=== PATIENT | male | born 1980 | race Caucasian/White ===

== ENCOUNTER 2019-01-01 10:46 | Inpatient (IN) | payer SELFPAY ==
[2019-01-01 11:52] LABS: APPEARANCE,URINE SLIGHTLY-CLOUDY; BILIRUBIN,URINE NEGATIVE (NEGATIVE); GLUCOSE, URINE NEGATIVE (NEGATIVE); KETONES,URINE TRACE mg/dL (NEGATIVE); LEUKOCYTE ESTERASE,URINE NEGATIVE (NEGATIVE); NITRITE,URINE NEGATIVE (NEGATIVE); PROTEIN,URINE 30 mg/dL (NEGATIVE); URINE SPECIFIC GRAVITY 1.026
[2019-01-01 11:54] LABS: COLOR,URINE DARK YELLOW
[2019-01-01 12:05] LABS: URINE AMPHETAMINES SCREEN NEGATIVE; URINE BARBITURATES SCREEN UNCONFIRMED POSITIVE; URINE BENZODIAZEPINES SCREEN NEGATIVE; URINE COCAINE SCREEN NEGATIVE; URINE MARIJUANA (THC) SCREEN UNCONFIRMED POSITIVE; URINE METHADONE SCREEN NEGATIVE; URINE PHENCYCLIDINE SCREEN NEGATIVE
--- NOTE | 2019-01-01 12:05 | ER Document Report ---
ED Medical Screen (RME) - General Chief Complaint: Suicidal Ideation Stated Complaint: SUICIDAL IDEATION Time Seen by Provider: 01/01/19 11:02 Mode of Arrival: Ambulatory Information source: Patient Notes: 38-year-old male who ED for suicidal ideations. He states that he last drank alcohol Saturday night/Saturday morning. He states he drinks a half a gallon of vodka a day he had about a pint late at night. He states the last time he tried to quit drinking he had seizures. He said he was thinking of suicide because he just cannot stand keep in on drinking. He states he is living with a friend who has multiple guns in the house he also has considered jumping off of a bridge or coronary walking in front of traffic. He states he just cannot stand life he is living. I have greeted and performed a rapid initial assessment of this patient. A comprehensive ED assessment and evaluation of the patient, analysis of test results and completion of medical decision making process will be conducted by an additional ED providers. Dictation of this chart was performed using voice recognition software; therefore, there may be some unintended grammatical errors. TRAVEL OUTSIDE OF THE [place] IN LAST 30 DAYS: No - Related Data Allergies/Adverse Reactions: No Known Allergies Allergy (Verified 01/01/19 10:48) Past Medical History - Social History Chew tobacco use (# tins/day): No Frequency of alcohol use: Heavy Drug Abuse: None Renal/ Medical History: Denies: Hx Peritoneal Dialysis Psychiatric Medical History: Reports: Hx Depression Physical Exam - Vital signs Vitals: Temp Pulse Resp BP Pulse Ox 98.4 F 119 H 20 156/102 H 97 01/01/19 10:55 01/01/19 10:55 01/01/19 10:55 01/01/19 10:55 01/01/19 10:55 Course - Vital Signs Vital signs: Temp Pulse Resp BP Pulse Ox 98.4 F 119 H 20 156/102 H 97 01/01/19 10:55 01/01/19 10:55 01/01/19 10:55 01/01/19 10:55 01/01/19 10:55 - Laboratory Laboratory results interpreted by me: 01/01/19 11:28 Urine Protein 30 H Urine Ketones TRACE H Urine Urobilinogen 2.0 H Urine Ascorbic Acid 20 H
[2019-01-01] MEDS ORDERED: NORMAL SALINE 1000 ML 1,000 ML IV PRN ×2 (12:46→14:01)
[2019-01-01] MEDS ORDERED: LORAZEPAM INJ 2 MG/1 ML VIAL IV ONE ×2 (12:47→13:45)
[2019-01-01 12:48] LABS: ABSOLUTE LYMPHOCYTES (AUTO) 1.4 10^3/uL (0.5-4.7); ABSOLUTE MONOCYTES (AUTO) 0.5 10^3/uL (0.1-1.4); ABSOLUTE NEUT (AUTO) 6.1 10^3/uL (1.7-8.2); BASOPHILS % (AUTO) 0.5 % (0-2); EOSINOPHILS % (AUTO) 0.5 % (0-6); HEMATOCRIT 42.1 % (37.9-51.0); HEMOGLOBIN 14.2 g/dL (13.5-17.0); LYMPHOCYTES % (AUTO) 17.5 % (13-45); MEAN CORPUSCULAR HGB CONC 33.8 g/dL (32.0-36.0); MEAN CORPUSCULAR VOLUME 86 fl (80-97); PLATELET COUNT 235 10^3/uL (150-450); RED CELL DISTRIBUTION WIDTH 15.2 % (11.5-14.0); SEGMENTED NEUTROPHILS % (AUTO) 75.5 % (42-78); TOTAL CELLS COUNTED % (AUTO) 100 %
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
[2019-01-01 13:07] LABS: ALANINE AMINOTRANSFERASE 38 U/L (21-72); ALBUMIN 4.8 g/dL (3.5-5.0); ALKALINE PHOSPHATASE 95 U/L (38-126); ANION GAP 9 (5-19); ASPARTATE AMINO TRANSFERASE 44 U/L (17-59); BILIRUBIN,DIRECT 0.4 mg/dL (0.0-0.4); BILIRUBIN,TOTAL 0.6 mg/dL (0.2-1.3); BLOOD UREA NITROGEN 9 mg/dL (7-20); CALCIUM 9.8 mg/dL (8.4-10.2); CARBON DIOXIDE 26 mmol/L (22-30); CHLORIDE 106 mmol/L (98-107); GLUCOSE 92 mg/dL (75-110); POTASSIUM 4.3 mmol/L (3.6-5.0); SODIUM 141.2 mmol/L (137-145); TOTAL PROTEIN 8.1 g/dL (6.3-8.2)
[2019-01-01 13:13] LABS: ACETAMINOPHEN < 10 ug/mL (10-30); ALCOHOL < 10 mg/dL (NONE DETECTED); SALICYLATE < 1.0 mg/dL (2.0-20.0)
[2019-01-01] MEDS ORDERED: OXYCODONE-ACETAMINOPHEN 5-325 MG TABLET PO PRN (14:01)
[2019-01-01] MEDS ORDERED: IPRATROPIUM/ALBUTEROL 0.5-2.5 MG/3 ML AMPUL NEB PRN (14:01)
[2019-01-01] MEDS ORDERED: ONDANSETRON HCL INJ/PF 4 MG/2 ML SDV IV PRN (14:01)
[2019-01-01] MEDS ORDERED: PROMETHAZINE HCL INJ 25 MG/1 ML VIAL IV PRN (14:01)
--- NOTE | 2019-01-01 14:03 | PSYCHOLOGICAL NOTE ---
Psych Note - Psych Note Date seen by psych provider: 01/01/19 Time seen by psych provider: 13:00 Psych Note: Reason For Consult: Suicidal ideation with withdrawal from alcohol 38-year-old male who ED for suicidal ideations. He states that he last drank alcohol Saturday night/Saturday morning. He states he drinks a half a gallon of vodka a day he had about a pint at night. Patient's last drink was approximately 48 hours ago. Patient is alert and orientated to person, place, time and circumstance. Mood is dysphoric with tearful affect. Patient endorses suicidal ideation denies homicidal ideation. Clinician notes patient did not demonstrate any behaviors of responding to internal stimuli during evaluation however approximately 15 minutes after evaluation started to demonstrate behavior of responding to internal stimuli. Patient's face became very flushed and increase of possible seizure was noted by attending nurse. During evaluation patient demonstrates fair to poor attention and concentration. Insight, judgment, impulse control is currently fair as patient indicates coming in for help and wanting to go to [facility] or any other rehab after detox. Alcohol withdrawal with Use Disorder; severe SI Impression/Plan: Patient is recommended for [facility] petition for overnight mental health observation. Patient discloses suicidal ideation in direct correlation to his substance abuse. Patient reports frustration of not being able to maintain sobriety and is scared of going through withdrawal again. Patient reports being admitted to ICU in [place] from withdrawal seizures and hallucinations in September or October timeframe. He reports he was very scared and is angry at himself for drinking again. Patient has been drinking approximately 1 month and is currently on day 2 since his last drink. Patient has been admitted medically. Patient will be reevaluated. Dr. Cobian was consulted to care management of this patient; attending physicians in agreement with recommendations and disposition.
[2019-01-01] MEDS ORDERED: LORAZEPAM INJ 2 MG/1 ML VIAL IV PRN ×2 (14:05)
--- NOTE | 2019-01-01 14:43 | PDOC H&P ---
History of Present Illness Admission Date/PCP: 01/01/19 13:58 History of Present Illness: BRIONNA GALLARDO JR is a 38 year old male past medical history of EtOH and tobacco abuse, DT, seizures secondary to EtOH withdrawal, presenting to ED for suicidal ideation and alcohol withdrawal. Chronic heavy drinking about half a gallon of vodka a day, has been sober for a while, but rebounded about month ago, last drink Saturday night. Recently hospitalized in [place] where he ended up in ICU, started on Precedex and IV Ativan, but not intubated. Patient has been having suicidal ideation, expressed to ED physician he was thinking of suicide because he could not keep ongoing drinking. Also stated that living with friend has multiple guns and has also considered jumping off a bridge or walking in front of traffic. On my encounter patient is very restless, anxious with severe tremors, however alert and oriented and cooperative with physical examination, endorses visual hallucinations, anxiety and formication. When asked about suicidal ideation and what he had expressed to ED physician, he confirms that he has having suicidal ideation. Prior to my encounter psychiatry has already examined the patient and patient is IVC. Denies any fever, chest pain, nausea, vomiting, diarrhea, constipation or any urinary symptoms. Past Medical History Neurological Medical History: Reports: Seizures - When he had alcohol withdrawal Psychiatric Medical History: Reports: Depression Social History Smoking Status: Current Every Day Smoker Frequency of Alcohol Use: Heavy Hx Recreational Drug Use: No Hx Prescription Drug Abuse: No - Advance Directive Resuscitation Status: Full Code Family History Family History: Reviewed & Not Pertinent, Malignancy, Other Parental Family History Reviewed: Yes Children Family History Reviewed: Yes Sibling(s) Family History Reviewed.: Yes Medication/Allergy Home Medications: No Home Medications 01/01/19 Allergies/Adverse Reactions: No Known Allergies Allergy (Verified 01/01/19 10:48) Review of Systems Review of Systems: as per hpi Physical Exam Vital Signs: Temp Pulse Resp BP Pulse Ox 97.8 F 119 H 17 148/104 H 100 01/01/19 14:21 01/01/19 10:55 01/01/19 14:21 01/01/19 14:21 01/01/19 14:21 Intake & Output 12/31/18 01/01/19 01/02/19 06:59 06:59 06:59 Weight 99.6 kg General appearance: PRESENT: mild distress, obese, well-developed, well- nourished Head exam: PRESENT: atraumatic, normocephalic Respiratory exam: PRESENT: clear to auscultation rashard. ABSENT: rales, rhonchi, wheezes Cardiovascular exam: PRESENT: RRR. ABSENT: diastolic murmur, rubs, systolic murmur GI/Abdominal exam: PRESENT: normal bowel sounds, soft. ABSENT: distended, guarding, mass, organolmegaly, rebound, tenderness Extremities exam: PRESENT: full ROM. ABSENT: calf tenderness, clubbing, pedal edema Neurological exam: PRESENT: alert, awake, oriented to person, oriented to place, oriented to time, oriented to situation, CN II-XII grossly intact. ABSENT: motor sensory deficit Psychiatric exam: PRESENT: anxious, suicidal ideation Focused psych exam: PRESENT: internal stimuli, restlessness Skin exam: PRESENT: dry, intact, warm. ABSENT: cyanosis, rash Results Laboratory Results: 01/01/19 12:33 01/01/19 12:33 01/01/19 01/01/19 01/01/19 11:28 12:33 12:33 WBC 8.0 RBC 4.90 Hgb 14.2 Hct 42.1 MCV 86 MCH 29.0 MCHC 33.8 RDW 15.2 H Plt Count 235 Seg Neutrophils % 75.5 Lymphocytes % 17.5 Monocytes % 6.0 Eosinophils % 0.5 Basophils % 0.5 Absolute Neutrophils 6.1 Absolute Lymphocytes 1.4 Absolute Monocytes 0.5 Absolute Eosinophils 0.0 Absolute Basophils 0.0 Sodium 141.2 Potassium 4.3 Chloride 106 Carbon Dioxide 26 Anion Gap 9 BUN 9 Creatinine 1.29 H Est GFR ( Amer) > 60 Est GFR (Non-Af Amer) > 60 Glucose 92 Calcium 9.8 Total Bilirubin 0.6 AST 44 ALT 38 Alkaline Phosphatase 95 Total Protein 8.1 Albumin 4.8 Urine Color DARK YELLOW Urine Appearance SLIGHTLY-CLOUDY Urine pH 5.0 Ur Specific [place] 1.026 Urine Protein 30 H Urine Glucose (UA) NEGATIVE Urine Ketones TRACE H Urine Blood NEGATIVE Urine Nitrite NEGATIVE Ur Leukocyte Esterase NEGATIVE Urine WBC (Auto) 2 Urine RBC (Auto) 1 Assessment and Plan - Diagnosis (1) Acute alcohol intoxication Qualifiers: Complication of substance-induced condition: with unspecified complication Qualified Code(s): F10.929 - Alcohol use, unspecified with intoxication, unspecified Is this a current diagnosis for this admission?: Yes Plan: Admit to IMCU, telemetry, IV scheduled benzos, IV PRN benzos, folic acid, thiamine, D5 NS, fall precaution, seizure precautions, aspiration precautions (2) Alcohol withdrawal Qualifiers: Complication of substance-induced condition: with perceptual disturbance Qu alified Code(s): F10.232 - Alcohol dependence with withdrawal with perceptual disturbance Is this a current diagnosis for this admission?: Yes Plan: As per #1. (3) Suicidal ideation Is this a current diagnosis for this admission?: Yes Plan: IVC in place. Suicide precautions. Psychiatry following. Recommendations will be noted. (4) History of seizure Is this a current diagnosis for this admission?: Yes Plan: Secondary to EtOH withdrawal. Seizure precautions. Benzos as needed.
[2019-01-01] MEDS: MORPHINE SULFATE 10 MG/ML INJ IV PRN ×2 (15:51→20:06)
[2019-01-01] MEDS: LORAZEPAM INJ 2 MG/1 ML VIAL IV PRN ×3 (15:51→20:06)
[2019-01-01] MEDS ORDERED: NORMAL SALINE 1000 ML 1,000 ML with POTASSIUM CHLORIDE 20 MEQ, MAGNESIUM SULFATE 8 MEQ,... IV SCH ×5 (18:00)
[2019-01-01] MEDS ORDERED: DIAZEPAM INJ 10 MG/2 ML DISP.SYRIN IV ONE (18:03)
--- NOTE | 2019-01-01 18:31 | Operative Report ---
Nonrecallable Operative Report DATE OF SURGERY: 01/01/19 PREOPERATIVE DIAGNOSIS: acute alcohol intoxication POSTOPERATIVE DIAGNOSIS: acute alcohol intoxication OPERATION: central venous line placement. SURGEON: HEATHER FLANAGAN ANESTHESIA: Local TISSUE REMOVED OR ALTERED: none COMPLICATIONS: none ESTIMATED BLOOD LOSS: 0 INTRAOPERATIVE FINDINGS: see dictation PROCEDURE: see dictation
--- NOTE | 2019-01-01 18:36 | EKG REPORT ---
SEVERITY:- BORDERLINE ECG - SINUS RHYTHM BORDERLINE INFERIOR Q WAVES : Confirmed by: Elizabeth Rose 01-Jan-2019 18:35:38
--- NOTE | 2019-01-01 18:46 | RADIOLOGY REPORT (SQ) ---
EXAM DESCRIPTION: CHEST SINGLE VIEW COMPLETED DATE/TIME: 01/01/2019 6:38 pm REASON FOR STUDY: central line placement COMPARISON: None. EXAM PARAMETERS: NUMBER OF VIEWS: One view. TECHNIQUE: Single frontal radiographic view of the chest acquired. RADIATION DOSE: NA LIMITATIONS: None. FINDINGS: LUNGS AND PLEURA: No opacities, masses or pneumothorax. No pleural effusion. MEDIASTINUM AND HILAR STRUCTURES: No masses. Contour normal. HEART AND VASCULAR STRUCTURES: Heart normal in size. Normal vasculature. BONES: No acute findings. HARDWARE: Right subclavian central vascular access catheter terminates in the region of the superior vena cava. OTHER: No other significant finding. IMPRESSION: 1. No evidence of acute cardiopulmonary abnormality. 2. Central line terminates in the region of the superior vena cava. TECHNICAL DOCUMENTATION: JOB ID: [id number] [employer]- All Rights Reserved Reading location - IP/workstation name: [email or web address]
--- NOTE | 2019-01-01 19:55 | OPERATIVE REPORT E ---
Operative Report NAME: BRIONNA GALLARDO JR : 1980 AGE: 38Y DATE OF SURGERY: 01/01/2019 ROOM: 330 PREOPERATIVE DIAGNOSES: 1. ACUTE ALCOHOL INTOXICATION. 2. DIFFICULT VENOUS ACCESS. POSTOPERATIVE DIAGNOSES: 1. ACUTE ALCOHOL INTOXICATION. 2. DIFFICULT VENOUS ACCESS. OPERATION: Right subclavian vein central line placement. SURGEON: HEATHER FLANAGAN M.D. PROCEDURE: Patient was placed in a Trendelenburg position. The right neck and chest were prepped and draped in the usual sterile fashion. After appropriate timeout and site verification, using 1% lidocaine plain, I raised a skin wheal underneath the right clavicle. Then using a 16-gauge needle, I cannulated the right subclavian vein. Through the needle, I passed a J-wire into the superior vena cava. The needle was removed. A small skin diane was made with a 15 blade and a dilator was placed over the wire. The dilator was then removed and a triple-lumen 16-gauge central line was then placed over the wire and fixed in place with 2-0 silk suture. A sterile dressing was applied. Chest x-ray revealed good placement. The patient tolerated the procedure well. DICTATING PHYSICIAN: HEATHER FLANAGAN M.D. [id number] Y#: [id number] ID: [id number] JOB#: [id number] ACCT: [id number] cc:HEATHER FLANAGAN M.D. >
[2019-01-01] MEDS ORDERED: DIPHENHYDRAMINE HCL 50 MG/ML VIAL IV ONE (20:31)
[2019-01-01] MEDS: DIAZEPAM INJ 10 MG/2 ML DISP.SYRIN IV SCH (21:10)
[2019-01-01] MEDS: FAMOTIDINE INJ/PF 20 MG/2 ML SDV IV SCH (21:11)
[2019-01-01] MEDS: HEPARIN SOD (PORCINE) 5,000 UNIT/ML 1 ML SYRINGE SUBCUT SCH (21:12)
[2019-01-01] MEDS: HALOPERIDOL LACTATE INJ 5 MG/1 ML VIAL IV ONE ×2 (21:13→21:19)
[2019-01-02] MEDS: OXYCODONE-ACETAMINOPHEN 5-325 MG TABLET PO PRN ×2 (00:25→12:04)
[2019-01-02] MEDS: DEXTROSE 5%-NORMAL SALINE 1,000 ML IV PRN ×2 (00:33→12:44)
[2019-01-02] MEDS: HEPARIN SOD (PORCINE) 5,000 UNIT/ML 1 ML SYRINGE SUBCUT SCH ×3 (06:08→22:22)
[2019-01-02] MEDS: DIAZEPAM INJ 10 MG/2 ML DISP.SYRIN IV SCH ×3 (06:13→22:22)
[2019-01-02 08:10] LABS: ABSOLUTE EOSINOPHILS # (AUTO) 0.1 10^3/uL (0.0-0.6); ABSOLUTE LYMPHOCYTES (AUTO) 1.6 10^3/uL (0.5-4.7); ABSOLUTE MONOCYTES (AUTO) 0.3 10^3/uL (0.1-1.4); ABSOLUTE NEUT (AUTO) 3.2 10^3/uL (1.7-8.2); BASOPHILS % (AUTO) 0.6 % (0-2); EOSINOPHILS % (AUTO) 1.9 % (0-6); HEMATOCRIT 38.5 % (37.9-51.0); LYMPHOCYTES % (AUTO) 30.2 % (13-45); MEAN CORPUSCULAR HEMOGLOBIN 29.3 pg (27.0-33.4); MEAN CORPUSCULAR HGB CONC 33.8 g/dL (32.0-36.0); MEAN CORPUSCULAR VOLUME 87 fl (80-97); MONOCYTES % (AUTO) 5.7 % (3-13); PLATELET COUNT 203 10^3/uL (150-450); RED BLOOD COUNT 4.44 10^6/uL (4.35-5.55); RED CELL DISTRIBUTION WIDTH 15.1 % (11.5-14.0); SEGMENTED NEUTROPHILS % (AUTO) 61.6 % (42-78); TOTAL CELLS COUNTED % (AUTO) 100 %; WHITE BLOOD COUNT 5.2 10^3/uL (4.0-10.5)
[2019-01-02 08:30] LABS: BLOOD UREA NITROGEN 7 mg/dL (7-20); CALCIUM 8.5 mg/dL (8.4-10.2); GLUCOSE 103 mg/dL (75-110); POTASSIUM 4.4 mmol/L (3.6-5.0)
[2019-01-02 08:36] LABS: ANION GAP 5 (5-19); CARBON DIOXIDE 25 mmol/L (22-30); CHLORIDE 110 mmol/L (98-107); SODIUM 139.5 mmol/L (137-145)
[2019-01-02] MEDS: FAMOTIDINE INJ/PF 20 MG/2 ML SDV IV SCH ×2 (09:29→22:21)
[2019-01-02] MEDS: THIAMINE HCL 100 MG TABLET PO SCH (09:29)
[2019-01-02] MEDS ORDERED: THIAMINE HCL 100 MG, FOLIC ACID 1 MG in NORMAL SALINE 250 ML IV SCH (10:00)
[2019-01-02] MEDS ORDERED: LORAZEPAM INJ 2 MG/1 ML VIAL IV PRN (13:21)
[2019-01-02] MEDS ORDERED: HALOPERIDOL LACTATE INJ 5 MG/1 ML VIAL IV PRN (13:22)
[2019-01-02] MEDS: FOLIC ACID/VITAMIN B COMP W-C CAPSULE PO SCH (17:56)
--- NOTE | 2019-01-02 17:56 | PDOC PROGRESS REPORT ---
Subjective Progress Note for:: 01/02/19 Subjective:: Spoke with patient at bedside. Patient states that feeling very anxious and wants something more for his anxiety. States that he wants Ativan. His Ativan was discontinued overnight and Haldol was given for his anxiety. In previous admissions supposedly he was very addicted to Ativan and hence it was discontinued. Told him that I would increase his dose of Valium which may help him with his anxiety. Reason For Visit: ETOH W/L,SI Physical Exam Vital Signs: Temp Pulse Resp BP Pulse Ox 98.0 F 82 15 141/94 H 96 01/02/19 07:32 01/02/19 09:24 01/02/19 09:24 01/02/19 07:32 01/02/19 09:24 Intake & Output 01/01/19 01/02/19 01/03/19 06:59 06:59 06:59 Intake Total 1720 1023 Output Total 400 Balance 1320 1023 Weight 225 lb 1.471 oz General appearance: PRESENT: no acute distress, other - Very anxious appearing Head exam: PRESENT: atraumatic, normocephalic Eye exam: PRESENT: EOMI. ABSENT: scleral icterus Ear exam: PRESENT: normal external ear exam Mouth exam: PRESENT: moist, tongue midline Respiratory exam: PRESENT: clear to auscultation rashard, symmetrical Cardiovascular exam: PRESENT: +S1, +S2 GI/Abdominal exam: PRESENT: normal bowel sounds, soft. ABSENT: tenderness Neurological exam: PRESENT: alert, awake, oriented to person, oriented to place, oriented to time, CN II-XII grossly intact Results Laboratory Results: 01/02/19 07:50 01/02/19 07:50 01/01/19 01/01/19 01/01/19 12:33 12:33 12:33 WBC 8.0 RBC 4.90 Hgb 14.2 Hct 42.1 MCV 86 MCH 29.0 MCHC 33.8 RDW 15.2 H Plt Count 235 Seg Neutrophils % 75.5 Lymphocytes % 17.5 Monocytes % 6.0 Eosinophils % 0.5 Basophils % 0.5 Absolute Neutrophils 6.1 Absolute Lymphocytes 1.4 Absolute Monocytes 0.5 Absolute Eosinophils 0.0 Absolute Basophils 0.0 Sodium 141.2 Potassium 4.3 Chloride 106 Carbon Dioxide 26 Anion Gap 9 BUN 9 Creatinine 1.29 H Est GFR ( Amer) > 60 Est GFR (Non-Af Amer) > 60 Glucose 92 Calcium 9.8 Total Bilirubin 0.6 AST 44 ALT 38 Alkaline Phosphatase 95 Total Protein 8.1 Albumin 4.8 TSH 0.42 L 01/02/19 01/02/19 07:50 07:50 WBC 5.2 RBC 4.44 Hgb 13.0 L Hct 38.5 MCV 87 MCH 29.3 MCHC 33.8 RDW 15.1 H Plt Count 203 Seg Neutrophils % 61.6 Lymphocytes % 30.2 Monocytes % 5.7 Eosinophils % 1.9 Basophils % 0.6 Absolute Neutrophils 3.2 Absolute Lymphocytes 1.6 Absolute Monocytes 0.3 Absolute Eosinophils 0.1 Absolute Basophils 0.0 Sodium 139.5 Potassium 4.4 Chloride 110 H Carbon Dioxide 25 Anion Gap 5 BUN 7 Creatinine 0.84 Est GFR ( Amer) > 60 Est GFR (Non-Af Amer) > 60 Glucose 103 Calcium 8.5 Total Bilirubin AST ALT Alkaline Phosphatase Total Protein Albumin TSH Impressions: Chest X-Ray 01/01/19 00:00 IMPRESSION: 1. No evidence of acute cardiopulmonary abnormality. 2. Central line terminates in the region of the superior vena cava. Assessment and Plan - Diagnosis (1) Alcohol withdrawal Qualifiers: Complication of substance-induced condition: with perceptual disturbance Qualified Code(s): F10.232 - Alcohol dependence with withdrawal with perceptual disturbance Is this a current diagnosis for this admission?: Yes (2) History of seizure Is this a current diagnosis for this admission?: Yes (3) Acute alcohol intoxication Qualifiers: Complication of substance-induced condition: with unspecified complication Qualified Code(s): F10.929 - Alcohol use, unspecified with intoxication, unspecified Is this a current diagnosis for this admission?: Yes (4) Suicidal ideation Is this a current diagnosis for this admission?: Yes - Plan Summary Plan Summary: Alcohol abuse with intoxication and withdrawal-he still feeling very restless and anxious-we will increase his Valium to 10 mg 3 times daily. He was given Haldol last night for anxiety and his Ativan was discontinued due to history of suspected abuse. I may consider to add back Ativan as as needed for anxiety and seizure. Discussed with him about alcohol abuse and cessation. Counseled him on cessation. States he drinks a lot of liquor daily and had dinner prior to admission. States that he has had alcohol-related admission to various hospitals many times. Suicidal ideation- prior to me assuming care he has had suicidal ideations per previous physician and hence he has been IVC'd. He will be going to a psych facility after he is cleared medically.
--- NOTE | 2019-01-02 18:50 | PSYCHOLOGICAL NOTE ---
Psych Note - Psych Note Date seen by psych provider: 01/02/19 Psych Note: Presenting Problem: 24 Hour IVC Petition, Alcohol Withdrawal, Passive SI related to SA. 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 Attending Hospitalist noted patient was shaky and jittery today with no plans for discharge. Today he stated he was doing "alright." He continued to endorse passive SI, general thoughts of not wanting to be here. He denied past SI attempts. He denied previous MH tx. He admitted to detox before and reported the following withdrawal symptoms in the past: shakes, really restless, can't sleep, has had seizures and hallucinations. 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 Diagnosis: Polysubstance Use Alcohol Withdrawal, With Use Disorder, Severe Cannabis Use Disorder Impression/Plan: Patient is cleared from acute psychiatric services. Recommendation to rescind 24 Hour IVC Petition. He denied SI intent and no plans. He denied HI. He did not appear to have any psychosis that interfered with ability to interact , carrying on dialogue conversation, express self/needs/wants. Provided patient with the [facility] outpatient resource sheet which highlighted [facility] and documented they could help with detox and other treatment placement, highlighted the 4 state funded detox facilities [facility] refers to and highlighted [facility]. Consulted with Dr. Cobian regarding the management and care of patient. Attending Hospitalist made aware of recommendations.
[2019-01-03] MEDS: OXYCODONE-ACETAMINOPHEN 5-325 MG TABLET PO PRN ×4 (00:15→22:31)
[2019-01-03] MEDS: DEXTROSE 5%-NORMAL SALINE 1,000 ML IV PRN ×2 (00:15→10:53)
[2019-01-03 04:46] LABS: ABSOLUTE EOSINOPHILS # (AUTO) 0.2 10^3/uL (0.0-0.6); ABSOLUTE LYMPHOCYTES (AUTO) 1.9 10^3/uL (0.5-4.7); ABSOLUTE MONOCYTES (AUTO) 0.4 10^3/uL (0.1-1.4); ABSOLUTE NEUT (AUTO) 3.3 10^3/uL (1.7-8.2); BASOPHILS % (AUTO) 0.4 % (0-2); EOSINOPHILS % (AUTO) 2.7 % (0-6); HEMOGLOBIN 12.7 g/dL (13.5-17.0); LYMPHOCYTES % (AUTO) 32.8 % (13-45); MEAN CORPUSCULAR HEMOGLOBIN 29.4 pg (27.0-33.4); MEAN CORPUSCULAR HGB CONC 34.2 g/dL (32.0-36.0); MEAN CORPUSCULAR VOLUME 86 fl (80-97); MONOCYTES % (AUTO) 6.4 % (3-13); PLATELET COUNT 198 10^3/uL (150-450); RED BLOOD COUNT 4.31 10^6/uL (4.35-5.55); RED CELL DISTRIBUTION WIDTH 15.1 % (11.5-14.0); SEGMENTED NEUTROPHILS % (AUTO) 57.7 % (42-78); TOTAL CELLS COUNTED % (AUTO) 100 %; WHITE BLOOD COUNT 5.8 10^3/uL (4.0-10.5)
[2019-01-03 05:03] LABS: ANION GAP 5 (5-19); BLOOD UREA NITROGEN 6 mg/dL (7-20); CALCIUM 8.6 mg/dL (8.4-10.2); CARBON DIOXIDE 26 mmol/L (22-30); CHLORIDE 108 mmol/L (98-107); GLUCOSE 98 mg/dL (75-110); POTASSIUM 4.2 mmol/L (3.6-5.0); SODIUM 138.9 mmol/L (137-145)
[2019-01-03] MEDS: HEPARIN SOD (PORCINE) 5,000 UNIT/ML 1 ML SYRINGE SUBCUT SCH ×3 (05:17→22:32)
[2019-01-03] MEDS: DIAZEPAM INJ 10 MG/2 ML DISP.SYRIN IV SCH ×3 (05:25→22:31)
[2019-01-03] MEDS: ACETAMINOPHEN 325 MG TABLET PO PRN (09:25)
[2019-01-03] MEDS: FAMOTIDINE INJ/PF 20 MG/2 ML SDV IV SCH ×2 (09:25→22:32)
[2019-01-03] MEDS: THIAMINE HCL 100 MG TABLET PO SCH (09:25)
[2019-01-03] MEDS: LORAZEPAM 1 MG TABLET PO PRN ×3 (10:51→22:32)
--- NOTE | 2019-01-03 13:15 | PDOC PROGRESS REPORT ---
Subjective Progress Note for:: 01/03/19 Subjective:: Spoke with patient at bedside along with his nurse. He states that he still feels anxious, nervous and jittery. He states that this is about a 3-4 now that he is without alcohol and feels worse. He is requesting Ativan again. States that the Valium is not helping. He has no other symptoms of chest pain, shortness breath, abdominal pain, nausea vomiting or dizziness. Reason For Visit: ETOH W/L,SI Physical Exam Vital Signs: Temp Pulse Resp BP Pulse Ox 98.4 F 82 19 138/89 H 100 01/03/19 08:38 01/03/19 09:00 01/03/19 09:00 01/03/19 08:38 01/03/19 09:00 Intake & Output 01/02/19 01/03/19 01/04/19 06:59 06:59 06:59 Intake Total 1720 6999 851 Output Total 400 7075 Balance 1320 -76 851 Weight 225 lb 1.471 oz 225 lb 12.054 oz General appearance: PRESENT: no acute distress Head exam: PRESENT: atraumatic, normocephalic Eye exam: PRESENT: EOMI. ABSENT: scleral icterus Ear exam: PRESENT: normal external ear exam Mouth exam: PRESENT: moist, tongue midline Respiratory exam: PRESENT: clear to auscultation rashard, symmetrical Cardiovascular exam: PRESENT: +S1, +S2 Pulses: PRESENT: +2 pedal pulses bilateral GI/Abdominal exam: PRESENT: normal bowel sounds, soft. ABSENT: tenderness Extremities exam: ABSENT: pedal edema Neurological exam: PRESENT: alert, awake, oriented to person, oriented to place, CN II-XII grossly intact Psychiatric exam: PRESENT: agitated - Somewhat, anxious Skin exam: PRESENT: dry, warm Results Laboratory Results: 01/03/19 04:30 01/03/19 04:30 01/03/19 01/03/19 04:30 04:30 WBC 5.8 RBC 4.31 L Hgb 12.7 L Hct 37.0 L MCV 86 MCH 29.4 MCHC 34.2 RDW 15.1 H Plt Count 198 Seg Neutrophils % 57.7 Lymphocytes % 32.8 Monocytes % 6.4 Eosinophils % 2.7 Basophils % 0.4 Absolute Neutrophils 3.3 Absolute Lymphocytes 1.9 Absolute Monocytes 0.4 Absolute Eosinophils 0.2 Absolute Basophils 0.0 Sodium 138.9 Potassium 4.2 Chloride 108 H Carbon Dioxide 26 Anion Gap 5 BUN 6 L Creatinine 0.73 Est GFR ( Amer) > 60 Est GFR (Non-Af Amer) > 60 Glucose 98 Calcium 8.6 Impressions: Chest X-Ray 01/01/19 00:00 IMPRESSION: 1. No evidence of acute cardiopulmonary abnormality. 2. Central line terminates in the region of the superior vena cava. Assessment and Plan - Diagnosis (1) Alcohol withdrawal Qualifiers: Complication of substance-induced condition: with perceptual disturbance Qualified Code(s): F10.232 - Alcohol dependence with withdrawal with perceptual disturbance Is this a current diagnosis for this admission?: Yes (2) History of seizure Is this a current diagnosis for this admission?: Yes (3) Acute alcohol intoxication Qualifiers: Complication of substance-induced condition: with unspecified complication Qualified Code(s): F10.929 - Alcohol use, unspecified with intoxication, unspecified Is this a current diagnosis for this admission?: Yes (4) Suicidal ideation Is this a current diagnosis for this admission?: Yes - Plan Summary Plan Summary: Alcohol abuse with intoxication and withdrawal-continues to feel anxious and nervous with the increased Valium 10 mg 3 times daily. He is requesting Ativan. I will add Ativan 1 mg p.o. every 6 hours for intermittent anxiety and nerv ousness. He was also seen by psychiatry yesterday and his IVC papers were rescinded as he was much more alert and able to communicate. Today I discussed with him about disposition and he states that he has no vertigo and no place to stay. He states that he would try to go to a jail after discharge until he can move to [place] where his family is. He did not have any other friends or family here. Discussed with him about alcohol abuse and cessation. Counseled him on cessation. States he drinks about half a gallon of liquor daily. States that he has had alcohol-related admission to various hospitals many times. Suicidal ideation-psych evaluated patient yesterday again and at this time IVC has been rescinded per psych. She denies any suicidal or homicidal ideations at this time.
[2019-01-03] MEDS: FOLIC ACID/VITAMIN B COMP W-C CAPSULE PO SCH (15:28)
[2019-01-03] MEDS: HYDRALAZINE HCL INJ/PF 20 MG/1 ML SDV IV PRN ×2 (15:28→23:43)
[2019-01-03] MEDS: KETOROLAC TROMETHAMINE INJ/PF 30 MG/1 ML SDV IV PRN (20:04)
[2019-01-04 03:45] LABS: ABSOLUTE EOSINOPHILS # (AUTO) 0.1 10^3/uL (0.0-0.6); ABSOLUTE LYMPHOCYTES (AUTO) 1.9 10^3/uL (0.5-4.7); ABSOLUTE MONOCYTES (AUTO) 0.4 10^3/uL (0.1-1.4); ABSOLUTE NEUT (AUTO) 3.4 10^3/uL (1.7-8.2); BASOPHILS % (AUTO) 0.7 % (0-2); EOSINOPHILS % (AUTO) 1.7 % (0-6); HEMATOCRIT 40.1 % (37.9-51.0); HEMOGLOBIN 13.7 g/dL (13.5-17.0); LYMPHOCYTES % (AUTO) 32.9 % (13-45); MEAN CORPUSCULAR HEMOGLOBIN 29.3 pg (27.0-33.4); MEAN CORPUSCULAR HGB CONC 34.2 g/dL (32.0-36.0); MEAN CORPUSCULAR VOLUME 86 fl (80-97); MONOCYTES % (AUTO) 6.5 % (3-13); PLATELET COUNT 227 10^3/uL (150-450); RED BLOOD COUNT 4.68 10^6/uL (4.35-5.55); RED CELL DISTRIBUTION WIDTH 15.5 % (11.5-14.0); SEGMENTED NEUTROPHILS % (AUTO) 58.2 % (42-78); TOTAL CELLS COUNTED % (AUTO) 100 %; WHITE BLOOD COUNT 5.8 10^3/uL (4.0-10.5)
[2019-01-04] MEDS: OXYCODONE-ACETAMINOPHEN 5-325 MG TABLET PO PRN ×4 (04:49→20:56)
[2019-01-04] MEDS: LORAZEPAM 1 MG TABLET PO PRN ×4 (04:51→22:59)
[2019-01-04 04:56] LABS: ANION GAP 7 (5-19); BLOOD UREA NITROGEN 5 mg/dL (7-20); CALCIUM 9.2 mg/dL (8.4-10.2); CARBON DIOXIDE 25 mmol/L (22-30); CHLORIDE 108 mmol/L (98-107); GLUCOSE 91 mg/dL (75-110); SODIUM 139.5 mmol/L (137-145)
[2019-01-04] MEDS: HEPARIN SOD (PORCINE) 5,000 UNIT/ML 1 ML SYRINGE SUBCUT SCH ×3 (06:01→21:09)
[2019-01-04] MEDS: DIAZEPAM INJ 10 MG/2 ML DISP.SYRIN IV SCH ×3 (06:01→21:10)
[2019-01-04] MEDS: THIAMINE HCL 100 MG TABLET PO SCH (10:23)
[2019-01-04] MEDS: FAMOTIDINE INJ/PF 20 MG/2 ML SDV IV SCH (10:24)
[2019-01-04] MEDS: AMLODIPINE BESYLATE 5 MG TABLET PO SCH (11:35)
[2019-01-04] MEDS: KETOROLAC TROMETHAMINE INJ/PF 30 MG/1 ML SDV IV PRN (13:55)
--- NOTE | 2019-01-04 15:07 | PDOC PROGRESS REPORT ---
Subjective Reason For Visit: ETOH W/L,SI Physical Exam Vital Signs: Temp Pulse Resp BP Pulse Ox 98.4 F 74 16 137/104 H 99 01/04/19 07:52 01/04/19 14:00 01/04/19 07:52 01/04/19 07:52 01/04/19 07:52 Intake & Output 01/03/19 01/04/19 01/05/19 06:59 06:59 06:59 Intake Total 6943 3248 Output Total 6123 2703 Balance -76 1173 Weight 225 lb 12.054 oz 223 lb 1.725 oz Results Laboratory Results: 01/04/19 03:35 01/04/19 03:35 01/04/19 01/04/19 03:35 03:35 WBC 5.8 RBC 4.68 Hgb 13.7 Hct 40.1 MCV 86 MCH 29.3 MCHC 34.2 RDW 15.5 H Plt Count 227 Seg Neutrophils % 58.2 Lymphocytes % 32.9 Monocytes % 6.5 Eosinophils % 1.7 Basophils % 0.7 Absolute Neutrophils 3.4 Absolute Lymphocytes 1.9 Absolute Monocytes 0.4 Absolute Eosinophils 0.1 Absolute Basophils 0.0 Sodium 139.5 Potassium 4.0 Chloride 108 H Carbon Dioxide 25 Anion Gap 7 BUN 5 L Creatinine 0.73 Est GFR ( Amer) > 60 Est GFR (Non-Af Amer) > 60 Glucose 91 Calcium 9.2 Impressions: Chest X-Ray 01/01/19 00:00 IMPRESSION: 1. No evidence of acute cardiopulmonary abnormality. 2. Central line terminates in the region of the superior vena cava. Assessment and Plan - Diagnosis (1) Alcohol withdrawal Qualifiers: Complication of substance-induced condition: with perceptual disturbance Qualified Code(s): F10.232 - Alcohol dependence with withdrawal with perceptual disturbance Is this a current diagnosis for this admission?: Yes (2) History of seizure Is this a current diagnosis for this admission?: Yes (3) Acute alcohol intoxication Qualifiers: Complication of substance-induced condition: with unspecified complication Qualified Code(s): F10.929 - Alcohol use, unspecified with intoxication, unspe cified Is this a current diagnosis for this admission?: Yes (4) Suicidal ideation Is this a current diagnosis for this admission?: Yes (5) Tooth pain Is this a current diagnosis for this admission?: Yes - Plan Summary Plan Summary: Alcohol abuse with intoxication and withdrawal-he seems to be doing better today compared to yesterday. He still has some anxiety but definitely improved. We will continue with Ativan as needed, Valium and supplement repletion of his vitamins. Initially he was IVC but that has been rescinded. He will need case management/discharge planning help with finding a long-term after discharge. Tooth pain-he does poor dental hygiene and 1 of his tooth seems to be decaying- continue with Percocet, Tylenol and Toradol as needed for pain. He will need follow-up after discharge. Suicidal ideation-psych evaluated patient yesterday again and at this time IVC has been rescinded per psych. She denies any suicidal or homicidal ideations at this time. Disposition-most likely discharge to a long-term as he has no place to go. Most likely we can discharge him on a short course of Valium taper-most likely to a long-term. Case management is aware.
[2019-01-04] MEDS: FOLIC ACID/VITAMIN B COMP W-C CAPSULE PO SCH (16:52)
[2019-01-04] MEDS: HYDRALAZINE HCL INJ/PF 20 MG/1 ML SDV IV PRN (19:24)
[2019-01-04] MEDS: FAMOTIDINE 20 MG TABLET PO SCH (21:09)
[2019-01-05] MEDS: OXYCODONE-ACETAMINOPHEN 5-325 MG TABLET PO PRN ×6 (01:07→22:04)
[2019-01-05] MEDS: HEPARIN SOD (PORCINE) 5,000 UNIT/ML 1 ML SYRINGE SUBCUT SCH ×3 (05:24→21:33)
[2019-01-05] MEDS: DIAZEPAM INJ 10 MG/2 ML DISP.SYRIN IV SCH ×3 (05:24→21:32)
[2019-01-05] MEDS: LORAZEPAM 1 MG TABLET PO PRN ×2 (05:32→17:33)
[2019-01-05] MEDS: THIAMINE HCL 100 MG TABLET PO SCH (09:51)
[2019-01-05] MEDS: FAMOTIDINE 20 MG TABLET PO SCH ×2 (09:51→21:32)
[2019-01-05] MEDS: AMLODIPINE BESYLATE 5 MG TABLET PO SCH (09:51)
--- NOTE | 2019-01-05 12:09 | PDOC PROGRESS REPORT ---
Subjective Progress Note for:: 01/05/19 Subjective:: 38 year old male past medical history of EtOH and tobacco abuse, DT, seizures secondary to EtOH withdrawal, presenting to ED for suicidal ideation and alcohol withdrawal. Chronic heavy drinking about half a gallon of vodka a day, has been sober for a while, but rebounded about month ago, last drink Saturday night. Recently hospitalized in [place] where he ended up in ICU, started on Precedex and IV Ativan, but not intubated. Patient has been having suicidal ideation, expressed to ED physician he was thinking of suicide because he could not keep ongoing drinking. Also stated that living with friend has multiple guns and has also considered jumping off a bridge or walking in front of traffic. On my encounter patient is very restless, anxious with severe tremors, however alert and oriented and cooperative with physical examination, endorses visual hallucinations, anxiety and formication. When asked about suicidal ideation and what he had expressed to ED physician, he confirms that he has having suicidal ideation. Prior to my encounter psychiatry has already examined the patient and patient is IVC. Denies any fever, chest pain, nausea, vomiting, diarrhea, constipation or any urinary symptoms. 01/05/[id number]-hguu-old male admitted with a history of alcohol abuse tobacco abuse and DTs. He had a seizure secondary to EtOH withdrawal. Initially an IVC commitment. IVC is rescinded. Patient is comfortable in the chair communicating well. Is waiting for placement in [facility]. Reason For Visit: ETOH W/L,SI Physical Exam Vital Signs: Temp Pulse Resp BP Pulse Ox 98.2 F 65 18 145/92 H 99 01/05/19 07:39 01/05/19 07:39 01/05/19 07:39 01/05/19 07:39 01/05/19 07:39 Intake & Output 01/04/19 01/05/19 01/06/19 06:59 06:59 06:59 Intake Total 3248 1260 Output Total 2075 Balance 1173 1260 Weight 101.2 kg 99.6 kg General appearance: PRESENT: no acute distress, cooperative Head exam: PRESENT: atraumatic Eye exam: PRESENT: PERRLA Ear exam: PRESENT: normal external ear exam Mouth exam: PRESENT: dry mucosa Teeth exam: PRESENT: poor dentation Neck exam: ABSENT: carotid bruit, JVD, lymphadenopathy, thyromegaly Respiratory exam: PRESENT: decreased breath sounds Cardiovascular exam: PRESENT: RRR. ABSENT: diastolic murmur, rubs, systolic murmur GI/Abdominal exam: PRESENT: normal bowel sounds, soft. ABSENT: distended, guarding, mass, organolmegaly, rebound, tenderness Rectal exam: PRESENT: deferred Extremities exam: PRESENT: full ROM. ABSENT: calf tenderness, clubbing, pedal edema Neurological exam: PRESENT: alert, awake, oriented to person, oriented to place, oriented to time, oriented to situation, CN II-XII grossly intact. ABSENT: motor sensory deficit Psychiatric exam: PRESENT: appropriate affect, normal mood. ABSENT: homicidal ideation, suicidal ideation Results Laboratory Results: 01/04/19 03:35 01/04/19 03:35 Impressions: Chest X-Ray 01/01/19 00:00 IMPRESSION: 1. No evidence of acute cardiopulmonary abnormality. 2. Central line terminates in the region of the superior vena cava. Assessment and Plan - Diagnosis (1) Acute alcohol intoxication Qualifiers: Complication of substance-induced condition: with unspecified complication Qualified Code(s): F10.929 - Alcohol use, unspecified with intoxication, unspecified Is this a current diagnosis for this admission?: Yes Plan: Admit to IMCU, telemetry, IV scheduled benzos, IV PRN benzos, folic acid, thiamine, D5 NS, fall precaution, seizure precautions, aspiration precautions Alcohol abuse with intoxication and withdrawal-he seems to be doing better today compared to yesterday. He still has some anxiety but definitely improved. We will continue with Ativan as needed, Valium and supplement repletion of his vitamins. Initially he was IVC but that has been rescinded. He will need case management/discharge planning help with finding a [facility] after discharge. 01/05/2019-patient is doing well. Initially he was under IVC which was rescinded. Waiting for [facility] placement. Is doing well. (2) Tooth pain Is this a current diagnosis for this admission?: Yes Plan: he does poor dental hygiene and 1 of his tooth seems to be decaying-continue with Percocet, Tylenol and Toradol as needed for pain. He will need follow-up after discharge. 01/05/2019-patient came in with tooth pain. Is receiving Tylenol Percocets and Toradol as needed basis. Patient need to follow-up with a dentist as an outpatient. (3) Suicidal ideation Is this a current diagnosis for this admission?: Yes Plan: IVC in place. Suicide precautions. Psychiatry following. Recommendations will be noted. -psych evaluated patient yesterday again and at this time IVC has been rescinded per psych. She denies any suicidal or homicidal ideations at this time. 7 [id number] was rescinded by the psych P. Denies any suicidal ideation or homicidal ideation at this time. (4) Tobacco abuse Is this a current diagnosis for this admission?: No Plan: 01/05/2019-patient has history of alcohol abuse smoking counseling was provided. pt Was strongly advised to quit smoking. - Time Time Spent with patient: 15-24 minutes Smoking Cessation Education: over 10 minutes Medications reviewed and adjusted accordingly: Yes Anticipated discharge: Other - Longterm
[2019-01-05] MEDS: FOLIC ACID/VITAMIN B COMP W-C CAPSULE PO SCH (17:33)
[2019-01-06] MEDS: HEPARIN SOD (PORCINE) 5,000 UNIT/ML 1 ML SYRINGE SUBCUT SCH ×3 (05:02→21:30)
[2019-01-06] MEDS: DIAZEPAM INJ 10 MG/2 ML DISP.SYRIN IV SCH ×2 (05:02→13:42)
[2019-01-06] MEDS: OXYCODONE-ACETAMINOPHEN 5-325 MG TABLET PO PRN ×4 (05:05→20:41)
[2019-01-06] MEDS: LORAZEPAM 1 MG TABLET PO PRN ×2 (05:09→16:19)
[2019-01-06 05:20] LABS: ABSOLUTE EOSINOPHILS # (AUTO) 0.1 10^3/uL (0.0-0.6); ABSOLUTE LYMPHOCYTES (AUTO) 1.9 10^3/uL (0.5-4.7); ABSOLUTE MONOCYTES (AUTO) 0.4 10^3/uL (0.1-1.4); ABSOLUTE NEUT (AUTO) 2.3 10^3/uL (1.7-8.2); BASOPHILS % (AUTO) 0.6 % (0-2); EOSINOPHILS % (AUTO) 2.7 % (0-6); HEMATOCRIT 41.2 % (37.9-51.0); HEMOGLOBIN 13.9 g/dL (13.5-17.0); LYMPHOCYTES % (AUTO) 39.5 % (13-45); MEAN CORPUSCULAR HEMOGLOBIN 29.1 pg (27.0-33.4); MEAN CORPUSCULAR HGB CONC 33.7 g/dL (32.0-36.0); MEAN CORPUSCULAR VOLUME 86 fl (80-97); MONOCYTES % (AUTO) 8.4 % (3-13); PLATELET COUNT 205 10^3/uL (150-450); RED BLOOD COUNT 4.78 10^6/uL (4.35-5.55); RED CELL DISTRIBUTION WIDTH 15.4 % (11.5-14.0); SEGMENTED NEUTROPHILS % (AUTO) 48.8 % (42-78); TOTAL CELLS COUNTED % (AUTO) 100 %; WHITE BLOOD COUNT 4.7 10^3/uL (4.0-10.5)
[2019-01-06 05:40] LABS: ALANINE AMINOTRANSFERASE 25 U/L (21-72); ALBUMIN 3.8 g/dL (3.5-5.0); ALKALINE PHOSPHATASE 69 U/L (38-126); ANION GAP 6 (5-19); ASPARTATE AMINO TRANSFERASE 17 U/L (17-59); BILIRUBIN,DIRECT 0.2 mg/dL (0.0-0.4); BILIRUBIN,TOTAL 0.4 mg/dL (0.2-1.3); BLOOD UREA NITROGEN 9 mg/dL (7-20); CALCIUM 9.4 mg/dL (8.4-10.2); CARBON DIOXIDE 27 mmol/L (22-30); CHLORIDE 108 mmol/L (98-107); GLUCOSE 88 mg/dL (75-110); POTASSIUM 4.4 mmol/L (3.6-5.0); SODIUM 141.2 mmol/L (137-145); TOTAL PROTEIN 6.4 g/dL (6.3-8.2)
[2019-01-06] MEDS: FAMOTIDINE 20 MG TABLET PO SCH ×2 (10:19→21:30)
[2019-01-06] MEDS: THIAMINE HCL 100 MG TABLET PO SCH (10:19)
[2019-01-06] MEDS: AMLODIPINE BESYLATE 5 MG TABLET PO SCH (10:19)
--- NOTE | 2019-01-06 15:08 | PDOC PROGRESS REPORT ---
Subjective Progress Note for:: 01/06/19 Subjective:: 38-year-old male with a history of EtOH abuse DTs and seizures secondary to withdrawal [facility]. Patient does have a history of chronic drinking about half a gallon of vodka a day apparently has been hospitalized several times but in [facility] and ended up on Precedex and IV Ativan at one time. Patient had been having some suicidal ideation but that is passed at this time. Patient states he is having a severe amount of pain in his left upper incisor which is broke off at the gumline. Patient sitting on side of bed with no acute distress or tremors noted. Reason For Visit: ETOH W/L,SI Physical Exam Vital Signs: Temp Pulse Resp BP Pulse Ox 97.8 F 75 18 120/74 100 01/06/19 11:23 01/06/19 11:23 01/06/19 11:23 01/06/19 11:23 01/06/19 11:23 Intake & Output 01/05/19 01/06/19 01/07/19 06:59 06:59 06:59 Intake Total 1260 2572 222 Balance 1260 2572 222 Weight 99.6 kg 97.2 kg General appearance: PRESENT: no acute distress, well-developed, well-nourished Head exam: PRESENT: atraumatic, normocephalic Eye exam: PRESENT: conjunctiva pink, EOMI, PERRLA. ABSENT: scleral icterus Ear exam: PRESENT: normal external ear exam Mouth exam: PRESENT: moist, tongue midline Teeth exam: PRESENT: poor dentation - Left upper incisor broke off at the gumline. Neck exam: ABSENT: carotid bruit, JVD, lymphadenopathy, thyromegaly Respiratory exam: PRESENT: clear to auscultation rashard. ABSENT: rales, rhonchi, wheezes Cardiovascular exam: PRESENT: RRR. ABSENT: diastolic murmur, rubs, systolic murmur Pulses: PRESENT: normal dorsalis pedis pul Vascular exam: PRESENT: normal capillary refill GI/Abdominal exam: PRESENT: normal bowel sounds, soft. ABSENT: distended, guarding, mass, organolmegaly, rebound, tenderness Rectal exam: PRESENT: deferred Extremities exam: PRESENT: full ROM. ABSENT: calf tenderness, clubbing, pedal edema Neurological exam: PRESENT: alert, awake, oriented to person, oriented to place, oriented to time, oriented to situation, CN II-XII grossly intact. ABSENT: motor sensory deficit Psychiatric exam: PRESENT: appropriate affect, normal mood. ABSENT: homicidal ideation, suicidal ideation Skin exam: PRESENT: dry, intact, warm. ABSENT: cyanosis, rash Results Laboratory Results: 01/06/19 05:05 01/06/19 05:05 01/06/19 01/06/19 05:05 05:05 WBC 4.7 RBC 4.78 Hgb 13.9 Hct 41.2 MCV 86 MCH 29.1 MCHC 33.7 RDW 15.4 H Plt Count 205 Seg Neutrophils % 48.8 Lymphocytes % 39.5 Monocytes % 8.4 Eosinophils % 2.7 Basophils % 0.6 Absolute Neutrophils 2.3 Absolute Lymphocytes 1.9 Absolute Monocytes 0.4 Absolute Eosinophils 0.1 Absolute Basophils 0.0 Sodium 141.2 Potassium 4.4 Chloride 108 H Carbon Dioxide 27 Anion Gap 6 BUN 9 Creatinine 1.00 Est GFR ( Amer) > 60 Est GFR (Non-Af Amer) > 60 Glucose 88 Calcium 9.4 Magnesium 2.2 Total Bilirubin 0.4 AST 17 ALT 25 Alkaline Phosphatase 69 Total Protein 6.4 Albumin 3.8 Impressions: Chest X-Ray 01/01/19 00:00 IMPRESSION: 1. No evidence of acute cardiopulmonary abnormality. 2. Central line terminates in the region of the superior vena cava. Assessment and Plan - Diagnosis (1) Alcohol withdrawal Qualifiers: Complication of substance-induced condition: with perceptual disturbance Qualified Code(s): F10.232 - Alcohol dependence with withdrawal with perceptual disturbance Is this a current diagnosis for this admission?: Yes Plan: Patient past point for needing heavy doses of benzodiazepines. I will DC IV Valium and IV Ativan. Would leave PRN p.o. Ativan in place. (2) Tooth pain Is this a current diagnosis for this admission?: Yes Plan: Patient states severe tooth pain. Patient is getting Percocet 5 one every 4 hours as needed. I will increase this to 2 every 6 hours. For better coverage. (3) Suicidal ideation Is this a current diagnosis for this admission?: Yes Plan: Resolved at this time. We will continue to follow patient and psychiatry recommendations patient to be discharged most likely tomorrow to inpatient bed for rehab. (4) Tobacco abuse Is this a current diagnosis for this admission?: No Plan: Education on smoking cessation given. - Time Time Spent with patient: 15-24 minutes - Inpatient Certification Medical Necessity: Need Close Monitoring Due to Risk of Patient Decompensation
[2019-01-06] MEDS: FOLIC ACID/VITAMIN B COMP W-C CAPSULE PO SCH (16:20)
[2019-01-06] MEDS: ACETAMINOPHEN 325 MG TABLET PO PRN (17:47)
[2019-01-07] MEDS: OXYCODONE-ACETAMINOPHEN 5-325 MG TABLET PO PRN ×2 (03:16→09:50)
[2019-01-07] MEDS: HEPARIN SOD (PORCINE) 5,000 UNIT/ML 1 ML SYRINGE SUBCUT SCH (05:01)
[2019-01-07] MEDS: THIAMINE HCL 100 MG TABLET PO SCH (09:50)
[2019-01-07] MEDS: AMLODIPINE BESYLATE 5 MG TABLET PO SCH (09:50)
[2019-01-07] MEDS: FAMOTIDINE 20 MG TABLET PO SCH (09:50)
--- NOTE | 2019-01-07 12:11 | PDOC DISCHARGE SUMMARY ---
General - Admit/Disc Date/PCP Admission Date/Primary Care Provider: 01/01/19 14:02 Discharge Date: 01/07/19 - Discharge Diagnosis (1) Alcohol withdrawal Is this a current diagnosis for this admission?: Yes (2) Tooth pain Is this a current diagnosis for this admission?: Yes (3) Suicidal ideation Is this a current diagnosis for this admission?: Yes (4) Tobacco abuse Is this a current diagnosis for this admission?: No - Additional Information Resuscitation Status: Full Code Discharge Diet: As Tolerated Discharge Activity: Activity As Tolerated Prescriptions: Amlodipine Besylate [Norvasc 5 mg Tablet] 5 mg PO DAILY #30 tablet Oxycodone HCl/Acetaminophen [Percocet 7.5-325 mg Tablet] 1 - 2 tab PO ASDIR PRN #15 tab PRN Reason: Home Medications: Amlodipine Besylate [Norvasc 5 mg Tablet] 5 mg PO DAILY #30 tablet 01/07/19 Oxycodone HCl/Acetaminophen [Percocet 7.5-325 mg Tablet] 1 - 2 tab PO ASDIR PRN #15 tab 01/07/19 History of Present Illness History of Present Illness: BRIONNA GALLARDO JR is a 38 year old male who presented to the ER with alcohol withdrawal and suicidal ideation. Patient also has a left lateral incisor that is broke off at the gumline which is causing intermittent pain. Patient was treated for alcohol withdrawal with IV Valium and Ativan while given multivitamins thiamine and folic acid. Patient has improved sufficiently to be discharged today. Patient is going [facility] and then hopefully be transferred to [facility] tomorrow for rehab. I will discharge patient with Norvasc for his blood pressure as well as Percocet 5/325 1 p.o. every 4 to 6 hours as needed #15 no refills for this acute toothache until patient be seen by dental. Physical Exam Vital Signs: Temp Pulse Resp BP Pulse Ox 97.9 F 56 L 16 127/80 H 100 01/07/19 03:11 01/07/19 07:00 01/07/19 03:11 01/07/19 03:11 01/07/19 03:11 Intake & Output 01/06/19 01/07/19 01/08/19 06:59 06:59 06:59 Intake Total 2572 2569 Output Total 2 Balance 2572 2567 Weight 97.2 kg 97.9 kg General appearance: PRESENT: no acute distress, well-developed, well-nourished Head exam: PRESENT: atraumatic, normocephalic Eye exam: PRESENT: conjunctiva pink, EOMI, PERRLA. ABSENT: scleral icterus Teeth exam: PRESENT: poor dentation Neck exam: ABSENT: carotid bruit, JVD, lymphadenopathy, thyromegaly Respiratory exam: PRESENT: clear to auscultation rashard. ABSENT: rales, rhonchi, wheezes Cardiovascular exam: PRESENT: RRR. ABSENT: diastolic murmur, rubs, systolic murmur Pulses: PRESENT: normal dorsalis pedis pul Vascular exam: PRESENT: normal capillary refill GI/Abdominal exam: PRESENT: normal bowel sounds, soft. ABSENT: distended, guarding, mass, organolmegaly, rebound, tenderness Extremities exam: PRESENT: full ROM. ABSENT: calf tenderness, clubbing, pedal edema Neurological exam: PRESENT: alert, awake, oriented to person, oriented to place, oriented to time, oriented to situation, CN II-XII grossly intact. ABSENT: motor sensory deficit Psychiatric exam: PRESENT: appropriate affect, normal mood. ABSENT: homicidal ideation, suicidal ideation Skin exam: PRESENT: dry, intact, warm. ABSENT: cyanosis, rash Results Laboratory Results: 01/06/19 05:05 01/06/19 05:05 Impressions: Chest X-Ray 01/01/19 00:00 IMPRESSION: 1. No evidence of acute cardiopulmonary abnormality. 2. Central line terminates in the region of the superior vena cava. Qualifiers - * PATIENT BEING DISCHARGED WITH ANY OF THE FOLLOWING DIAGNOSIS: No Acute Heart Failure - Is this a Heart Failure Patient?: No Plan Time Spent: Greater than 30 Minutes
[2019-01-07 13:12] VITALS: BP 141/77
== END 2019-01-07 13:45 | disposition home or self-care (01) | DRG 897 ==
LOC: ER 10:46 → EH 13:58 → OBSVTOIN 14:02 → 3S 14:58
PROVIDERS: ADMIT Internal Medicine; ATTEND Internal Medicine
PROC: 02HV33Z Insertion of Infusion Device into Superior Vena Cava, Percutaneous Approach (ICD-10-PCS; principal; 2019-01-01)
DX: F10.232 Alcohol dependence with withdrawal with perceptual disturbance (principal); R45.851 Suicidal ideations; F32.9 Major depressive disorder, single episode, unspecified; F17.210 Nicotine dependence, cigarettes, uncomplicated; F10.229 Alcohol dependence with intoxication, unspecified; F12.90 Cannabis use, unspecified, uncomplicated; K08.89 Other specified disorders of teeth and supporting structures; Z59.0 Homelessness
CPT/HCPCS: 36415; 71045; 80048; 80053; 80307; 81001; 82962; 83735; 84443; 85025; 93005; 93010; 96361; 96374; 99291; J0360; J1200; J1630; J1644; J1885; J2060; J2270; J3360; J3411; J3475; J3480; J3490; J7030; J7042; S0028

== ENCOUNTER 2019-11-26 21:34 | Emergency (ER) | payer SELFPAY ==
[2019-11-27] MEDS ORDERED: DIAZEPAM 5 MG TABLET PO ONE (00:01)
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
[2019-11-27 01:36] LABS: APPEARANCE,URINE CLEAR; BILIRUBIN,URINE NEGATIVE (NEGATIVE); COLOR,URINE YELLOW; GLUCOSE, URINE NEGATIVE (NEGATIVE); KETONES,URINE NEGATIVE (NEGATIVE); LEUKOCYTE ESTERASE,URINE NEGATIVE (NEGATIVE); NITRITE,URINE NEGATIVE (NEGATIVE); PROTEIN,URINE NEGATIVE (NEGATIVE); URINE SPECIFIC GRAVITY 1.012; UROBILINOGEN,URINE NEGATIVE mg/dL (<2.0)
[2019-11-27 01:37] LABS: ABSOLUTE EOSINOPHILS # (AUTO) 0.2 10^3/uL (0.0-0.6); ABSOLUTE LYMPHOCYTES (AUTO) 3.6 10^3/uL (0.5-4.7); ABSOLUTE MONOCYTES (AUTO) 0.3 10^3/uL (0.1-1.4); ABSOLUTE NEUT (AUTO) 2.2 10^3/uL (1.7-8.2); BASOPHILS % (AUTO) 0.7 % (0-2); EOSINOPHILS % (AUTO) 3.9 % (0-6); HEMATOCRIT 43.6 % (37.9-51.0); HEMOGLOBIN 15.2 g/dL (13.5-17.0); LYMPHOCYTES % (AUTO) 56.8 % (13-45); MEAN CORPUSCULAR HEMOGLOBIN 29.8 pg (27.0-33.4); MEAN CORPUSCULAR HGB CONC 34.8 g/dL (32.0-36.0); MEAN CORPUSCULAR VOLUME 86 fl (80-97); MONOCYTES % (AUTO) 4.6 % (3-13); PLATELET COUNT 214 10^3/uL (150-450); RED BLOOD COUNT 5.09 10^6/uL (4.35-5.55); RED CELL DISTRIBUTION WIDTH 14.1 % (11.5-14.0); TOTAL CELLS COUNTED % (AUTO) 100 %; WHITE BLOOD COUNT 6.3 10^3/uL (4.0-10.5)
[2019-11-27 01:47] LABS: ALBUMIN 4.8 g/dL (3.5-5.0); ALCOHOL 200 mg/dL (NONE DETECTED); ALKALINE PHOSPHATASE 106 U/L (38-126); ANION GAP 12 (5-19); ASPARTATE AMINO TRANSFERASE 49 U/L (17-59); BILIRUBIN,TOTAL 0.3 mg/dL (0.2-1.3); BLOOD UREA NITROGEN 13 mg/dL (7-20); CALCIUM 9.3 mg/dL (8.4-10.2); CARBON DIOXIDE 21 mmol/L (22-30); CHLORIDE 107 mmol/L (98-107); GLUCOSE 93 mg/dL (75-110); POTASSIUM 4.9 mmol/L (3.6-5.0); TOTAL PROTEIN 8.2 g/dL (6.3-8.2)
[2019-11-27 01:48] LABS: ACETAMINOPHEN < 10 ug/mL (10-30); SALICYLATE < 1.0 mg/dL (2.0-20.0)
[2019-11-27 02:34] LABS: URINE AMPHETAMINES SCREEN NEGATIVE; URINE MARIJUANA (THC) SCREEN NEGATIVE; URINE METHADONE SCREEN NEGATIVE; URINE PHENCYCLIDINE SCREEN NEGATIVE
[2019-11-27 02:47] LABS: URINE BARBITURATES SCREEN UNCONFIRMED POSITIVE; URINE BENZODIAZEPINES SCREEN UNCONFIRMED POSITIVE; URINE COCAINE SCREEN UNCONFIRMED POSITIVE
[2019-11-27] MEDS ORDERED: LORAZEPAM INJ 2 MG/1 ML VIAL IV ONE ×2 (07:01→12:13)
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
[2019-11-27] MEDS ORDERED: LORAZEPAM 1 MG TABLET PO ONE (07:12)
--- NOTE | 2019-11-27 07:18 | EKG REPORT ---
SEVERITY:- NORMAL ECG - SINUS RHYTHM : Confirmed by: Alex Jimenez MD 27-Nov-2019 07:17:28
[2019-11-27] MEDS: LORAZEPAM 1 MG TABLET PO SCH ×2 (09:49→15:33)
[2019-11-27] MEDS ORDERED: NORMAL SALINE 1000 ML 1,000 ML with POTASSIUM CHLORIDE 20 MEQ, MAGNESIUM SULFATE 8 MEQ,... IV SCH ×10 (10:00→18:00)
[2019-11-27 19:02] VITALS: BP 130/76
== END 2019-11-27 19:11 | disposition home or self-care (01) ==
LOC: ER 21:34
DX: F10.239 Alcohol dependence with withdrawal, unspecified (principal); F14.10 Cocaine abuse, uncomplicated; F17.200 Nicotine dependence, unspecified, uncomplicated
CPT/HCPCS: 93005; 99285; 96361; 96374; 36415; 80307 ×4; 85025; 80053; 81001; 93010; J3475; J2060; J3480; J3411; J7030; J3490

== ENCOUNTER 2019-11-28 03:12 | Observation (INO) | payer SELFPAY ==
[2019-11-28] MEDS ORDERED: NORMAL SALINE 1000 ML 1,000 ML IV ONE (03:47)
[2019-11-28 04:22] LABS: ABSOLUTE EOSINOPHILS # (AUTO) 0.2 10^3/uL (0.0-0.6); ABSOLUTE LYMPHOCYTES (AUTO) 2.8 10^3/uL (0.5-4.7); ABSOLUTE MONOCYTES (AUTO) 0.3 10^3/uL (0.1-1.4); BASOPHILS % (AUTO) 0.6 % (0-2); EOSINOPHILS % (AUTO) 2.6 % (0-6); HEMATOCRIT 41.5 % (37.9-51.0); HEMOGLOBIN 14.2 g/dL (13.5-17.0); LYMPHOCYTES % (AUTO) 33.3 % (13-45); MEAN CORPUSCULAR HEMOGLOBIN 29.9 pg (27.0-33.4); MEAN CORPUSCULAR HGB CONC 34.2 g/dL (32.0-36.0); MEAN CORPUSCULAR VOLUME 87 fl (80-97); PLATELET COUNT 201 10^3/uL (150-450); RED BLOOD COUNT 4.74 10^6/uL (4.35-5.55); SEGMENTED NEUTROPHILS % (AUTO) 59.5 % (42-78); TOTAL CELLS COUNTED % (AUTO) 100 %; WHITE BLOOD COUNT 8.4 10^3/uL (4.0-10.5)
[2019-11-28 04:30] LABS: ALBUMIN 4.3 g/dL (3.5-5.0); ALCOHOL 243 mg/dL (NONE DETECTED); ALKALINE PHOSPHATASE 94 U/L (38-126); ANION GAP 8 (5-19); ASPARTATE AMINO TRANSFERASE 43 U/L (17-59); BILIRUBIN,TOTAL 0.3 mg/dL (0.2-1.3); BLOOD UREA NITROGEN 14 mg/dL (7-20); CARBON DIOXIDE 24 mmol/L (22-30); CHLORIDE 108 mmol/L (98-107); GLUCOSE 87 mg/dL (75-110); POTASSIUM 4.6 mmol/L (3.6-5.0); TOTAL PROTEIN 7.2 g/dL (6.3-8.2)
[2019-11-28 04:31] LABS: ACETAMINOPHEN < 10 ug/mL (10-30); SALICYLATE < 1.0 mg/dL (2.0-20.0)
[2019-11-28 05:58] LABS: APPEARANCE,URINE CLEAR; BILIRUBIN,URINE NEGATIVE (NEGATIVE); COLOR,URINE STRAW; GLUCOSE, URINE NEGATIVE (NEGATIVE); KETONES,URINE NEGATIVE (NEGATIVE); LEUKOCYTE ESTERASE,URINE NEGATIVE (NEGATIVE); NITRITE,URINE NEGATIVE (NEGATIVE); PROTEIN,URINE NEGATIVE (NEGATIVE); URINE SPECIFIC GRAVITY 1.006; UROBILINOGEN,URINE NEGATIVE mg/dL (<2.0)
[2019-11-28] MEDS ORDERED: LORAZEPAM INJ 2 MG/1 ML VIAL IV ONE (06:18)
[2019-11-28 06:20] LABS: URINE AMPHETAMINES SCREEN NEGATIVE; URINE BENZODIAZEPINES SCREEN NEGATIVE; URINE MARIJUANA (THC) SCREEN NEGATIVE; URINE METHADONE SCREEN NEGATIVE; URINE PHENCYCLIDINE SCREEN NEGATIVE
[2019-11-28 06:24] LABS: URINE BARBITURATES SCREEN UNCONFIRMED POSITIVE; URINE COCAINE SCREEN UNCONFIRMED POSITIVE
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
[2019-11-28] MEDS ORDERED: ONDANSETRON 4 MG TAB.RAPDIS PO PRN (08:10)
[2019-11-28] MEDS ORDERED: ONDANSETRON HCL INJ/PF 4 MG/2 ML SDV IV PRN (08:10)
[2019-11-28] MEDS ORDERED: MAG HYDROX/AL HYDROX/SIMETH SUSP 30 ML UDCUP PO PRN (08:10)
[2019-11-28] MEDS ORDERED: TEMAZEPAM 7.5 MG CAPSULE PO PRN (08:10)
[2019-11-28] MEDS ORDERED: OXYCODONE-ACETAMINOPHEN 5-325 MG TABLET PO PRN (08:10)
[2019-11-28] MEDS ORDERED: DEXTROSE 5%-WATER 1000 ML 1,000 ML IV PRN (08:10)
[2019-11-28] MEDS ORDERED: ACETAMINOPHEN 325 MG TABLET PO PRN (08:10)
[2019-11-28] MEDS ORDERED: HYDRALAZINE HCL INJ/PF 20 MG/1 ML SDV IV PRN (08:20)
--- NOTE | 2019-11-28 08:24 | RADIOLOGY REPORT (SQ) ---
EXAM DESCRIPTION: CT HEAD WITHOUT IMAGES COMPLETED DATE/TIME: 11/28/2019 8:11 am REASON FOR STUDY: Seizure COMPARISON: None. TECHNIQUE: Axial images acquired through the brain without intravenous contrast. Images reviewed wi th bone, brain and subdural windows. Additional sagittal and coronal reconstructions were generated. Images stored on PACS. All CT scanners at this facility use dose modulation, iterative reconstruction, and/or weight based d osing when appropriate to reduce radiation dose to as low as reasonably achievable (ALARA). [facility]: Dose Right [facility]: CareDose [facility]: Dose Right [facility]: Teradose 4D [facility]: [employer] RADIATION DOSE: CT Rad equipment meets quality standard of care and radiation dose reduction techniq ues were employed. CTDIvol: 53.2 mGy. DLP: 991 mGy-cm. mGy. LIMITATIONS: Mild motion artifact FINDINGS: VENTRICLES: Normal size and contour. CEREBRUM: No masses. No hemorrhage. No midline shift. No evidence for acute infarction. Normal gra y/white matter differentiation. No areas of low density in the white matter. CEREBELLUM: No masses. No hemorrhage. No alteration of density. No evidence for acute infarction. EXTRAAXIAL SPACES: No fluid collections. No masses. ORBITS AND GLOBE: No intra- or extraconal masses. Normal contour of globe without masses. CALVARIUM: No fracture. PARANASAL SINUSES: Mucous membrane thickening and fluid in the bilateral ethmoid air cells SOFT TISSUES: No mass or hematoma. OTHER: No other significant finding. IMPRESSION: NORMAL BRAIN CT WITHOUT CONTRAST. EVIDENCE OF ACUTE STROKE: NO. COMMENT: Quality ID # [id number]: Final reports with documentation of one or more dose reduction techniques (e.g., Automated exposure control, adjustment of the mA and/or kV according to patient size, use of iterative reconstruction technique) TECHNICAL DOCUMENTATION: JOB ID: [id number] 2010 [employer]- All Rights Reserved Reading location - IP/workstation name: [email or web address]
[2019-11-28] MEDS ORDERED: LORAZEPAM 1 MG TABLET PO SCH (08:30)
[2019-11-28 08:33] LABS: INTERNATIONAL RATION (INR) 1.02; PROTHROMBIN TIME 13.4 SEC (11.4-15.4)
[2019-11-28] MEDS ORDERED: ENOXAPARIN SODIUM INJ 40 MG/0.4 ML DISP.SYRIN SUBCUT SCH (10:00)
[2019-11-28] MEDS ORDERED: AMLODIPINE BESYLATE 5 MG TABLET PO SCH (10:00)
[2019-11-28] MEDS ORDERED: FAMOTIDINE INJ/PF 20 MG/2 ML SDV IV SCH (10:00)
[2019-11-28] MEDS ORDERED: DOCUSATE SODIUM 100 MG CAPSULE PO SCH (10:00)
[2019-11-28] MEDS ORDERED: NORMAL SALINE 1000 ML 1,000 ML with POTASSIUM CHLORIDE 20 MEQ, MAGNESIUM SULFATE 8 MEQ,... IV ONE ×5 (10:00)
[2019-11-28 10:04] VITALS: BP 124/89
--- NOTE | 2019-11-28 10:49 | EKG REPORT ---
SEVERITY:- BORDERLINE ECG - SINUS RHYTHM BORDERLINE INFERIOR Q WAVES TALL R WAVES IN V1-V2, ( ? ETIOLOGY, 8 DIFFERENTIAL DIAGNOSES) : Confirmed by: Alex Jimenez MD 28-Nov-2019 10:48:23
--- NOTE | 2019-11-28 13:34 | PDOC H&P ---
History of Present Illness Admission Date/PCP: 11/28/19 07:56 History of Present Illness: BRIONNA GALLARDO JR is a 39 year old male seen in the emergency room for alcohol abuse and possible withdrawal. Patient was actually seen in the emergency room yesterday with the exact same problem of chronic alcohol abuse requesting detox. Question about 2 seizures earlier in the week as well as question of visual sensations, ever patient also admits to cocaine abuse as well as alcohol. She is drinking anywhere from a pint to 1/5 of alcohol daily. Patient comes back into the emergency room for the same complaint today admitting to a half a gallon of vodka a day. He was recently admitted and discharged to the detox center he reportedly had a seizure during the evening. Patient stated he wanted to be admitted to the hospital because he had a sensation that something was "crawling on his skin". The emergency room he denied suicide or homicidal ideations. Patient was given IV Ativan as well as IV vitamins and admitted to the hospital for scheduled Ativan and pain medication as needed. Even before the patient left the emergency room he was demanding more medication On top of his Ativan I ordered Percocet. Past Medical History Cardiac Medical History: Reports: Hypertension Neurological Medical History: Reports: Seizures - When he had alcohol withdrawal Psychiatric Medical History: Reports: Alcohol Dependency, Depression, Substance Abuse Social History Smoking Status: Current Every Day Smoker Frequency of Alcohol Use: Heavy Hx Recreational Drug Use: No Drugs: Marijuana Hx Prescription Drug Abuse: No - Advance Directive Resuscitation Status: Full Code Family History Family History: Reviewed & Not Pertinent, Malignancy, Other Parental Family History Reviewed: No Children Family History Reviewed: No Sibling(s) Family History Reviewed.: No Medication/Allergy Home Medications: Amlodipine Besylate [Norvasc 5 mg Tablet] 5 mg PO DAILY #30 tablet 01/07/19 Oxycodone HCl/Acetaminophen [Percocet 7.5-325 mg Tablet] 1 - 2 tab PO ASDIR PRN #15 tab 01/07/19 Lorazepam [Ativan 1 mg Tablet] 2 mg PO Q4 #30 tab 11/27/19 Allergies/Adverse Reactions: No Known Allergies Allergy (Unverified 01/02/19 05:01) Review of Systems Constitutional: ABSENT: chills, fever(s), headache(s), weight gain, weight loss Cardiovascular: ABSENT: chest pain, dyspnea on exertion, edema, orthropnea, palpitations Respiratory: ABSENT: cough, hemoptysis Integumentary: PRESENT: pruritus Neurological: ABSENT: abnormal gait, abnormal speech, confusion, dizziness, focal weakness, syncope Psychiatric: PRESENT: anxiety Physical Exam Vital Signs: Temp Pulse Resp BP Pulse Ox 98.0 F 105 H 18 124/89 H 99 11/28/19 09:44 11/28/19 09:44 11/28/19 09:44 11/28/19 09:44 11/28/19 09:44 Intake & Output 11/27/19 11/28/19 11/29/19 06:59 06:59 06:59 Intake Total 1000 Balance 1000 Weight 99.79 kg General appearance: PRESENT: no acute distress - Patient was observed at the doorway while he was in the emergency room. Stood and watch the patient for 2 to 3 minutes who was asleep resting comfortably with no muscle fasciculations, no snoring respirations. Patient arouses easily to verbal command. She asked me for for more medication even though he had just received IV Ativan Respiratory exam: PRESENT: clear to auscultation rashard. ABSENT: rales, rhonchi, wheezes Cardiovascular exam: PRESENT: RRR. ABSENT: diastolic murmur, rubs, systolic murmur Neurological exam: PRESENT: alert, awake, oriented to person, oriented to place, oriented to time, oriented to situation, CN II-XII grossly intact. ABSENT: motor sensory deficit Psychiatric exam: PRESENT: agitated, anxious Results Laboratory Results: 11/28/19 03:45 11/28/19 03:45 11/28/19 11/28/19 11/28/19 03:45 03:45 04:45 WBC 8.4 RBC 4.74 Hgb 14.2 Hct 41.5 MCV 87 MCH 29.9 MCHC 34.2 RDW 14.0 Plt Count 201 Seg Neutrophils % 59.5 Sodium 140.4 Potassium 4.6 Chloride 108 H Carbon Dioxide 24 Anion Gap 8 BUN 14 Creatinine 1.07 Est GFR ( Amer) > 60 Glucose 87 Calcium 9.0 Total Bilirubin 0.3 AST 43 Alkaline Phosphatase 94 Total Protein 7.2 Albumin 4.3 Urine Color STRAW Urine Appearance CLEAR Urine pH 6.0 Ur Specific [place] 1.006 Urine Protein NEGATIVE Urine Glucose (UA) NEGATIVE Urine Ketones NEGATIVE Urine Blood NEGATIVE Urine Nitrite NEGATIVE Ur Leukocyte Esterase NEGATIVE Urine WBC (Auto) 0 11/28/19 03:45 Creatine Kinase 433 H Impressions: Head CT 11/28/19 07:46 IMPRESSION: NORMAL BRAIN CT WITHOUT CONTRAST. EVIDENCE OF ACUTE STROKE: NO. Assessment and Plan - Diagnosis (1) Acute alcohol intoxication Qualifiers: Complication of substance-induced condition: with unspecified complication Qualified Code(s): F10.929 - Alcohol use, unspecified with intoxication, unspecified Is this a current diagnosis for this admission?: Yes (2) Chronic alcoholism Is this a current diagnosis for this admission?: Yes (3) Cocaine abuse Is this a current diagnosis for this admission?: Yes (4) History of seizure Is this a current diagnosis for this admission?: Yes - Plan Summary Summary: 11/28/2019 CBC yesterday and today is normal Chemistry profile yesterday and today is also normal. CK was up however 433 Urinalysis yesterday and today was normal Today's urine drug screen was positive for alcohol at 200 and unconfirmed positive for barbiturates benzodiazepines and cocaine A urine drug screen is positive for barbiturates as well as cocaine blood alcohol is [address] head scan shows normal brain without contrast no evidence of stroke She was admitted to the hospital for Ativan on a scheduled basis every 6 hours and also Percocet every 4 hours as needed Unfortunately patient was very demanding up on the floor , asking for more medication.. He was told that he was not going to get any further medication and that he needed to cooperate. Patient signed himself out AMA.. Patient refused to sign the AMA form Prior to walking into see the patient up on the floor the nurse and I stood at the door and observe the patient sleeping comfortably, peacefully, with no muscle fasciculations for at least 3 minutes - Time Time Spent with patient: 35 or more minutes
--- NOTE | 2019-11-28 13:39 | Left Against Medical Advice ---
Against Medical Advice Admission Date/Time: 11/28/19 07:56 Primary Care Provider: Date of Patient Emigration: 11/28/19 - Diagnosis: (1) Acute alcohol intoxication Is this a current diagnosis for this admission?: Yes (2) Chronic alcoholism Is this a current diagnosis for this admission?: Yes (3) Cocaine abuse Is this a current diagnosis for this admission?: Yes (4) History of seizure Is this a current diagnosis for this admission?: Yes - Summary: Summary: Please see Admission and Progress Notes as well. BRIONNA GALLARDO JR is a 39 M, who LEFT AGAINST MEDICAL ADVICE. The Patient was admitted on 11/28/19 07:56. Complete history and physical please see yesterday's ER note and today's H&P. He was seen originally down in the emergency room examined and orders were written to admit the patient. She was placed on a 1 mg Ativan p.o. schedule every 6 hours. She was also given Percocet 10/31/2024 1 every 4 hours as needed pain. As soon as patient got to the floor he started asking for more medications. The nurse called me because of the patient's demands. Nurse and I stood at the patient's doorway and observed him sleeping comfortably with no muscle fasciculations for 2 to 3 minutes. Aspirations were 16 and unlabored She was told that he was on a schedule that would keep him from going into withdrawals and in fact with his blood alcohol level earlier being 240 there is very little chance of him having withdrawals. He became irate because he would not get any further medications and got up and left AMA without signing the form. Patient appeared to be competent to make this decision and therefore was not stopped
[2019-11-28] MEDS ORDERED: NORMAL SALINE 1000 ML 1,000 ML with POTASSIUM CHLORIDE 20 MEQ, MAGNESIUM SULFATE 8 MEQ,... IV SCH ×5 (18:00)
== END 2019-11-28 10:05 | disposition left against medical advice (07) ==
LOC: ER 03:12 → EH 07:56 → INTOOBSV 07:56 → 4W 09:40
PROVIDERS: ADMIT Hospitalist; ATTEND Hospitalist
DX: F10.229 Alcohol dependence with intoxication, unspecified (principal); F14.10 Cocaine abuse, uncomplicated; Y90.8 Blood alcohol level of 240 mg/100 ml or more; Z86.69 Personal history of other diseases of the nervous system and sense organs; R20.8 Other disturbances of skin sensation; F17.200 Nicotine dependence, unspecified, uncomplicated; I10 Essential (primary) hypertension; F41.9 Anxiety disorder, unspecified; L29.9 Pruritus, unspecified; S00.512A Abrasion of oral cavity, initial encounter; S80.212A Abrasion, left knee, initial encounter; X58.XXXA Exposure to other specified factors, initial encounter
CPT/HCPCS: 93005; 99285; 96361; 96374; 36415; 80307 ×4; 82550; 85025; 85610; 80053; 81001; 70450; 93010; J2060; J7030

== ENCOUNTER 2019-11-28 20:15 | Emergency (ER) | payer SELFPAY ==
[2019-11-28 20:58] LABS: ABSOLUTE EOSINOPHILS # (AUTO) 0.1 10^3/uL (0.0-0.6); ABSOLUTE LYMPHOCYTES (AUTO) 3.2 10^3/uL (0.5-4.7); ABSOLUTE MONOCYTES (AUTO) 0.4 10^3/uL (0.1-1.4); ABSOLUTE NEUT (AUTO) 3.2 10^3/uL (1.7-8.2); BASOPHILS % (AUTO) 0.6 % (0-2); EOSINOPHILS % (AUTO) 2.1 % (0-6); HEMATOCRIT 38.2 % (37.9-51.0); LYMPHOCYTES % (AUTO) 46.2 % (13-45); MEAN CORPUSCULAR HEMOGLOBIN 29.6 pg (27.0-33.4); MEAN CORPUSCULAR HGB CONC 33.9 g/dL (32.0-36.0); MEAN CORPUSCULAR VOLUME 87 fl (80-97); PLATELET COUNT 199 10^3/uL (150-450); RED BLOOD COUNT 4.38 10^6/uL (4.35-5.55); SEGMENTED NEUTROPHILS % (AUTO) 45.1 % (42-78); TOTAL CELLS COUNTED % (AUTO) 100 %
[2019-11-28 21:16] LABS: ALBUMIN 4.2 g/dL (3.5-5.0); ALCOHOL 253 mg/dL (NONE DETECTED); ALKALINE PHOSPHATASE 88 U/L (38-126); ANION GAP 8 (5-19); ASPARTATE AMINO TRANSFERASE 47 U/L (17-59); BILIRUBIN,TOTAL 0.3 mg/dL (0.2-1.3); BLOOD UREA NITROGEN 14 mg/dL (7-20); CALCIUM 8.7 mg/dL (8.4-10.2); CARBON DIOXIDE 24 mmol/L (22-30); CHLORIDE 107 mmol/L (98-107); GLUCOSE 80 mg/dL (75-110); POTASSIUM 4.4 mmol/L (3.6-5.0); TOTAL PROTEIN 6.9 g/dL (6.3-8.2)
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
[2019-11-28 21:17] LABS: ACETAMINOPHEN < 10 ug/mL (10-30); SALICYLATE < 1.0 mg/dL (2.0-20.0)
[2019-11-28 21:28] LABS: APPEARANCE,URINE CLEAR; BILIRUBIN,URINE NEGATIVE (NEGATIVE); COLOR,URINE STRAW; GLUCOSE, URINE NEGATIVE (NEGATIVE); KETONES,URINE NEGATIVE (NEGATIVE); LEUKOCYTE ESTERASE,URINE NEGATIVE (NEGATIVE); NITRITE,URINE NEGATIVE (NEGATIVE); PROTEIN,URINE NEGATIVE (NEGATIVE); URINE SPECIFIC GRAVITY 1.006; UROBILINOGEN,URINE NEGATIVE mg/dL (<2.0)
[2019-11-28 21:43] LABS: URINE AMPHETAMINES SCREEN NEGATIVE; URINE BARBITURATES SCREEN UNCONFIRMED POSITIVE; URINE BENZODIAZEPINES SCREEN NEGATIVE; URINE COCAINE SCREEN NEGATIVE; URINE MARIJUANA (THC) SCREEN NEGATIVE; URINE METHADONE SCREEN NEGATIVE; URINE PHENCYCLIDINE SCREEN NEGATIVE
[2019-11-29] MEDS ORDERED: HALOPERIDOL LACTATE INJ 5 MG/1 ML VIAL IM ONE (03:43)
[2019-11-29] MEDS ORDERED: LORAZEPAM INJ 2 MG/1 ML VIAL IM ONE (03:43)
[2019-11-29] MEDS ORDERED: DIPHENHYDRAMINE HCL 50 MG/ML VIAL IM ONE (03:44)
--- NOTE | 2019-11-29 09:21 | EKG REPORT ---
SEVERITY:- BORDERLINE ECG - SINUS RHYTHM BORDERLINE INFERIOR Q WAVES EARLY PRECORDIAL TRANSITION, CLINICAL CORRELATION NEEDED : Confirmed by: Alex Jimenez MD 29-Nov-2019 09:20:38
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
[2019-11-29 14:34] VITALS: BP 137/85
--- NOTE | 2019-11-29 14:59 | PSYCHOLOGICAL NOTE ---
Psych Note - Psych Note Date seen by psych provider: 11/29/19 Time seen by psych provider: 10:20 Psych Note: Reason for Consult: Suicidal comments, Alcohol abuse Impression/Plan: Patient is recommended for rescind of IVC and is cleared from acute psychiatric services; paperwork signed and placed in patient's chart. Dr. Cobian was consulted on the care and mangement of this patient; attending physician is in agreement with recommendations and disposition.
== END 2019-11-29 14:33 | disposition home or self-care (01) ==
LOC: ER 20:15
DX: F10.10 Alcohol abuse, uncomplicated (principal); R40.4 Transient alteration of awareness; F17.210 Nicotine dependence, cigarettes, uncomplicated; I10 Essential (primary) hypertension
CPT/HCPCS: 93005; 99285; 96372; 36415; 82962; 80307 ×4; 87070; 81001; 93010; J1200; J1630; J2060

== ENCOUNTER 2019-11-30 09:17 | Emergency (ER) | payer SELFPAY ==
[2019-11-30] MEDS ORDERED: NORMAL SALINE 1000 ML 1,000 ML IV ONE (10:04)
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
[2019-11-30 11:12] LABS: ABSOLUTE EOSINOPHILS # (AUTO) 0.2 10^3/uL (0.0-0.6); ABSOLUTE LYMPHOCYTES (AUTO) 1.7 10^3/uL (0.5-4.7); ABSOLUTE MONOCYTES (AUTO) 0.3 10^3/uL (0.1-1.4); ABSOLUTE NEUT (AUTO) 2.5 10^3/uL (1.7-8.2); BASOPHILS % (AUTO) 0.6 % (0-2); EOSINOPHILS % (AUTO) 4.3 % (0-6); HEMATOCRIT 40.2 % (37.9-51.0); HEMOGLOBIN 13.9 g/dL (13.5-17.0); LYMPHOCYTES % (AUTO) 36.2 % (13-45); MEAN CORPUSCULAR HEMOGLOBIN 30.1 pg (27.0-33.4); MEAN CORPUSCULAR HGB CONC 34.6 g/dL (32.0-36.0); MEAN CORPUSCULAR VOLUME 87 fl (80-97); MONOCYTES % (AUTO) 6.4 % (3-13); PLATELET COUNT 194 10^3/uL (150-450); RED BLOOD COUNT 4.61 10^6/uL (4.35-5.55); RED CELL DISTRIBUTION WIDTH 14.3 % (11.5-14.0); SEGMENTED NEUTROPHILS % (AUTO) 52.5 % (42-78); TOTAL CELLS COUNTED % (AUTO) 100 %; WHITE BLOOD COUNT 4.8 10^3/uL (4.0-10.5)
[2019-11-30] MEDS: THIAMINE HCL INJ 200 MG/2 ML VIAL IV ONE ×2 (11:17→11:29)
[2019-11-30 12:42] LABS: ALBUMIN 4.2 g/dL (3.5-5.0); ALCOHOL 224 mg/dL (NONE DETECTED); ALKALINE PHOSPHATASE 102 U/L (38-126); ANION GAP 10 (5-19); ASPARTATE AMINO TRANSFERASE 44 U/L (17-59); BILIRUBIN,TOTAL 0.3 mg/dL (0.2-1.3); BLOOD UREA NITROGEN 9 mg/dL (7-20); CALCIUM 8.7 mg/dL (8.4-10.2); CARBON DIOXIDE 22 mmol/L (22-30); CHLORIDE 109 mmol/L (98-107); GLUCOSE 97 mg/dL (75-110); POTASSIUM 4.3 mmol/L (3.6-5.0); TOTAL PROTEIN 6.9 g/dL (6.3-8.2)
[2019-11-30 12:48] LABS: ACETAMINOPHEN < 10 ug/mL (10-30); SALICYLATE < 1.0 mg/dL (2.0-20.0)
[2019-11-30 12:54] LABS: APPEARANCE,URINE CLEAR; BILIRUBIN,URINE NEGATIVE (NEGATIVE); COLOR,URINE STRAW; GLUCOSE, URINE NEGATIVE (NEGATIVE); KETONES,URINE NEGATIVE (NEGATIVE); LEUKOCYTE ESTERASE,URINE NEGATIVE (NEGATIVE); NITRITE,URINE NEGATIVE (NEGATIVE); PROTEIN,URINE NEGATIVE (NEGATIVE); URINE SPECIFIC GRAVITY 1.003; UROBILINOGEN,URINE NEGATIVE mg/dL (<2.0)
[2019-11-30 13:18] LABS: URINE AMPHETAMINES SCREEN NEGATIVE; URINE BENZODIAZEPINES SCREEN NEGATIVE; URINE COCAINE SCREEN NEGATIVE; URINE MARIJUANA (THC) SCREEN NEGATIVE; URINE METHADONE SCREEN NEGATIVE; URINE PHENCYCLIDINE SCREEN NEGATIVE
[2019-11-30 13:19] VITALS: BP 138/102
[2019-11-30 13:21] LABS: URINE BARBITURATES SCREEN UNCONFIRMED POSITIVE
--- NOTE | 2019-11-30 14:18 | PSYCHOLOGICAL NOTE ---
Psych Note - Psych Note Date seen by psych provider: 11/30/19 Time seen by psych provider: 10:39 - [id number] Psych Note: Presenting Problem: Patient is a 39 year old male who presented to the [facility] ED this morning via [facility] for alcohol detox/withdrawal. Patient confirmed he came to the ED with [facility]. He was unable to recall the name of the [facility] worker. He reported a history of seizures that accompany alcohol withdrawal. He stated "I am jumpy now, I have the trembles, I'm scared to not stay here due to withdrawal." There was no observed jumpiness or trembles. He mentioned "I can't go to [facility], they cannot handle my withdrawal there, they will send me back here, I could there." Patient reported "I have been to detox and they send me back to the ED." Medical staff was trying to get an IV placed. At about 1300 went to talk to patient regarding coordination with [facility] and why the linkage to [facility]. He immediately said "I am not going to [facility], you guys aren't giving me anything here for detox, then just let me go take this IV out." Patient was made aware this clinician is not medical and would get a nurse for IV removal, then patient started grabbing for the IV himself and was told assertively not to remove it until medical assists. He was also made aware he was being treated by getting fluids. Explained trying to help by coordinating with [facility]. Patient Eloped once medical staff removed IV. Patient was alert and oriented to self, person, place, and situation. Mood was depressed with flat affect initially then became irritable with congruent affect as evidenced by loud tone of voice, going for his IV to rip it out but was instructed to wait for medical staff and being demanding. He denied current SI/HI and these were never presenting concerns. Patient did not appear to be responding to internal stimuli as evidenced by fair eye contact and answering questions appropriately when addressed. Thought processes were linear. Conversational speech was initially slow in rate and somewhat slurred, later was loud in tone. Intellectual abilities are estimated to be average. Insight, judgment and impulse control were fair as evidenced by seeking help however there are concerns given his response to this clinician and the Attending ED Physician was to give him medication for withdrawal (he was not withdrawing if he had been actively drinking during assessment with [facility] this morning and had a Serum Alcohol Level of 224 at 1208. Chart review revealed patient has been to the ED 7 times now since 2014 (03/14/15, 03/15/15, 01/01/19) all for alcohol related issues. The last 4 have been since 11/26/2019 (11/26/2019, 11/28/2019, 11/28/2019 and current 11/30/2019). On 11/27/2019 at 0114 drug screen was positive for barbiturates, cocaine, benzodiazepines along with Serum Alcohol Level of 200. On 11/28/2019 at 0445 his UDS was positive for cocaine and barbiturates along with Serum Alcohol Level of 243 at 0345. On 11/28/2019 drug screen was positive for barbiturates along with Serum Alcohol Level of 253 at 2025. Today at 1208 Serum Alcohol Level was 224 and drug screen pending. Collateral: Attending medical staff noted patient saying he was hallucinating. Tried calling [facility] at [phone] via the Call Center. Stu with [facility] called back. Obtained collateral from [id number]. She identified they have never had an open case with patient previously and he commented he typically uses [facility]. She stated while she was completing assessment with patient this morning (at the hotel he's staying in) "he was actively drinking" and said it was to avoid withdrawal. MCM worker stated she called [facility] who informed her patient "is a regular there and he would need to go to [facility] for medical clearance." MCM worker stated patient has no supports other than a girlfriend he provided as emergency contact and when MCM worker reached out the girlfriend said to just let her know what's going on. MCM noted patient said he does not have transportation which is why they tried [facility] first but she wanted to make a [facility] referral. MCM worker identified patient was at the [facility] 3 weeks ago and left AMA. She stated patient told her he was getting Suboxone from someone in [place] but has not been able to get it. At 1308 called Stu with [facility] to make aware of patient leaving/Eloped. Explained have lab work if she needs it for detox placement. She stated she would follow up with patient to see what he wanted in terms of treatment and if labs are needed will call back. Diagnosis: Alcohol Intoxication with Use Disorder Severe Impression/Plan: Patient is cleared from acute psychiatric services. Coordinated with [facility] regarding medical detox placement who noted patient does not have transportation which is why they were using [facility] and that patient had been to the [facility] 3 weeks ago but left AMA. Patient at first reported he was withdrawing, asked for medication and to be admitted for withdrawal, told medical staff he was hallucinating, and told this clinician he was jumpy with trembles. Did not observe jumpiness or trembles. [facility] worker noted patient was actively drinking during assessment this morning and his Serum Alcohol Level at 1208 was 224 so likely not withdrawing. Explained to patient coordinating care with [facility]. He was irritable and said he was not going to [facility], tried to pull IV out on his own, then once medical staff removed IV he Eloped. This clinician told patient he would be provided with appropriate resources. Went to obtain lab work and resource sheet, came back with the information but patient left already. This clinician went outside to ED lobby and parking lot area but could not find patient. [facility] made aware of patient Eloped ED around 1308. Consulted with Dr. Cobian regarding the management and care of patient. ED Physician in agreement with recommendations.
--- NOTE | 2019-11-30 22:38 | EKG REPORT ---
SEVERITY:- BORDERLINE ECG - SINUS RHYTHM BORDERLINE INFERIOR Q WAVES : Confirmed by: Elizabeth Rose 30-Nov-2019 22:37:45
== END 2019-11-30 13:25 | disposition left against medical advice (07) ==
LOC: ER 09:17
DX: F10.120 Alcohol abuse with intoxication, uncomplicated (principal); Y90.7 Blood alcohol level of 200-239 mg/100 ml; Z76.5 Malingerer [conscious simulation]; F17.210 Nicotine dependence, cigarettes, uncomplicated; F14.10 Cocaine abuse, uncomplicated; I10 Essential (primary) hypertension
CPT/HCPCS: 93005; 99281; 96361; 96374; 36415; 80307 ×4; 85025; 80053; 81001; 93010; J3411; J7030